=== PATIENT | female | born 1995 | race Caucasian/White ===

== ENCOUNTER 2016-06-26 14:06 | Emergency (ER) | payer OTHER ==
[~2016-06-26] VITALS: Ht 165.1 cm; Wt 70.0 kg
[2016-06-26 14:26] VITALS: BP 130/85; PULSE 80; RESP 16; TEMP 98.5; O2SAT 97
[2016-06-26] MEDS ORDERED: LEXA20TA PO (14:50)
[2016-06-26] MEDS ORDERED: XANA1TAB2 PO (14:50)
[2016-06-26 14:54] LABS: BLOOD, URINE SMALL (NEG); GLUCOSE,URINE NEG (NEG); KETONE, URINE NEG (NEG); NITRITE,URINE NEG (NEG)
--- NOTE | 2016-06-26 14:55 | PD ---
HPI Chief Complaint: Complaint Time Seen by Provider: 14:44 Travel History International Travel<30 days: No Contact w/Intl Traveler<30days: No Traveled to known affect area: No History of Present Illness HPI The patient is a 20-year-old female who presents emergency department for 2 day history of dysuria, frequency, urgency, and suprapubic discomfort. Patient complains of pressure and discomfort over the suprapubic region that radiating to the right lower quadrant into the right shoulder. She also complains of dysuria, frequency, and urgency with one episode of blood on the toilet paper. She denies any vaginal bleeding or discharge. The patient's last missed a cycle was November 08, 2016, she is sexually active, not currently on control. She does have a history of UTI with previous/similar symptoms. She denies any upper abdominal pain, does note mild nausea with one episode of vomiting. She denies any associated fever, chills, or sweats. PFSH Past Medical History Anxiety: Yes GERD: Yes Tetanus Vaccination: > 5 Years Influenza Vaccination: No ?: Unknown LMP: 06/10/15 Past Surgical History Surgical History: No Previous Surgery Social History Alcohol Use: No Tobacco Use: No Substance Use: No Allergies-Medications (Allergen,Severity, Reaction): Coded Allergies: No Known Allergies (Unverified , 06/26/16) Reported Meds & Prescriptions Reported Meds & Active Scripts Active Pyridium (Phenazopyridine HCl) 200 Mg Tab 200 Mg PO Q8H PRN 2 Days Bactrim DS (Sulfamethoxazole-Trimethoprim) 800-160 Mg Tab 1 Tab PO BID Reported Xanax (Alprazolam) 1 Mg Tab 1 Mg PO Q8H PRN Lexapro (Escitalopram Oxalate) 20 Mg Tab 20 Mg PO DAILY Review of Systems Except as stated in HPI: all other systems reviewed are Neg General / Constitutional: No: Fever, Chills Gastrointestinal: Positive: Nausea, Vomiting Genitourinary: Positive: Urgency, Frequency, Dysuria, Pelvic Pain, No: Discharge, Vaginal Bleeding Musculoskeletal: No: Myalgias Skin: No Rash Physical Exam Narrative GENERAL: Awake, alert, pleasant 20-year-old female who appears her stated age and is in no acute respiratory distress. SKIN: Warm and dry. HEAD: Atraumatic. Normocephalic. EYES: Patient is wearing glasses. No injection or drainage. GASTROINTESTINAL: Abdomen soft, mild suprapubic tenderness. No rebound tender his, guarding, or rigidity. Back: No CVA tenderness. MUSCULOSKELETAL: No obvious deformities. No clubbing. No cyanosis. No edema. NEUROLOGICAL: Awake and alert. No obvious cranial nerve deficits. Motor grossly within normal limits. Normal speech. PSYCHIATRIC: Appropriate mood and affect; insight and judgment normal. Data Data Last Documented VS Vital Signs Date Time Temp Pulse Resp B/P Pulse Ox O2 Delivery O2 Flow Rate FiO2 06/26/16 17:05 84 20 113/66 98 Room Air 06/26/16 14:26 98.5 Orders Urinalysis - C+S If Indicated (06/26/16 14:29) Ed Urine Pregnancytest Poc (06/26/16 14:37) Ct Abd/Pel W/O Iv Contrast (06/26/16 ) Us Pelvis Comp W Transvaginal (06/26/16 ) Beta Hcg (Quant/Titer) (06/26/16 17:12) Labs Laboratory Tests Test 06/26/16 06/26/16 14:40 17:20 Urine Collection Type CLEAN CATCH Urine Color YELLOW Urine Turbidity CLEAR Urine pH 6.0 Urine Specific [place] 1.020 Urine Protein NEG mg/dL Urine Glucose (UA) NEG mg/dL Urine Ketones NEG mg/dL Urine Occult Blood SMALL Urine Nitrite NEG Urine Bilirubin NEG Urine Leukocyte Esterase NEG Urine RBC 0-3 /hpf Urine WBC 0-2 /hpf Urine Squamous Epithelial 0-5 /hpf Cells Microscopic Urinalysis Comment CULT NOT INDICATED Human Chorionic Gonadotropin, LESS THAN 1 Quant MIU/ML MDM Medical Decision Making Medical Screen Exam Complete: Yes Emergency Medical Condition: Yes Medical Record Reviewed: Yes Interpretation(s) Laboratory Tests Test 06/26/16 14:40 Urine Collection Type CLEAN CATCH Urine Color YELLOW Urine Turbidity CLEAR Urine pH 6.0 Urine Specific [place] 1.020 Urine Protein NEG mg/dL Urine Glucose (UA) NEG mg/dL Urine Ketones NEG mg/dL Urine Occult Blood SMALL Urine Nitrite NEG Urine Bilirubin NEG Urine Leukocyte Esterase NEG Urine RBC 0-3 /hpf Urine WBC 0-2 /hpf Urine Squamous Epithelial 0-5 /hpf Cells Microscopic Urinalysis Comment CULT NOT INDICATED CT of the abdomen and pelvis reveals 2 tiny nonobstructing stones in the right kidney without evidence of hydronephrosis. Normal dimension right ureter. There is a greater than 5 cm masslike abnormality the right adnexal region which appears to be ovarian in origin, possibly a tumor. No calcific elements seen. There are both low density and intermediate density components to this and this lesion cannot be further evaluated by noncontrast study. Differential Diagnosis Differential diagnosis includes UTI, cystitis, nephrolithiasis, pyelonephritis, vaginitis, cervicitis, PID, atypical appendicitis, . Narrative Course Bedside UA test was obtained, was negative. UA was sent to lab. UA reveals blood, no evidence of infection. Therefore, CT of the abdomen and pelvis was ordered to evaluate for nephrolithiasis. CT reveals no evidence of hydronephrosis, there are 2 tiny nonobstructing stones in the right kidney, however, right ureter is within normal dimensions. However, there was greater than 5 cm masslike abnormality in the right adnexal region which appears to be ovarian in origin, possibly tumor. Therefore, ultrasound was ordered. The patient was signed out to the oncoming physician at 4 PM with ultrasound results pending. Patient may benefit from treatment of possible hemorrhagic cystitis with her current symptoms, therefore, I prescribed Bactrim and Pyridium. Diagnosis Primary Impression: Hemorrhagic cystitis Additional Impression: Ovarian mass, right Patient Instructions: General Instructions Med/Other Pt SpecificInfo: Prescription(s) given Scripts Phenazopyridine (Pyridium)200 Mg Xhg650 Mg PO Q8H PRN (DYSURIA) 2 Days Ref 0 Prov:Lambert Pink MD 06/26/16 Sulfamethoxazole-Trimethoprim (Bactrim DS)800-160 Mg Tab1 Tab PO BID #14 TAB Ref 0 Prov:Lambert Pink MD 06/26/16 Disposition: 01 DISCHARGE HOME Condition: Stable Lambert Pink MD Jun 26, 2016 14:55
[2016-06-26 14:58] LABS: METHOD OF COLLECTION CLEAN CATCH; URINE COLOR YELLOW (YELLW/STRAW)
[2016-06-26 14:59] LABS: RBC, URINE 0-3 /hpf (0-3); WBC, URINE 0-2 /hpf (0-5)
[2016-06-26 15:00] LABS: COMMENT (UR) CULT NOT INDICATED; CULTURE IF INDICATED CULT NOT INDICATED; SQUAMOUS EPITHELIAL CELL URINE 0-5 /hpf (0-5)
[2016-06-26] MEDS ORDERED: BACT800T5 PO (15:56)
[2016-06-26] MEDS ORDERED: PYRI200T4 PO (15:56)
--- NOTE | 2016-06-26 15:59 | RADHPO ---
EXAM DATE/TIME: 06/26/2016 15:19 [facility] COMPARISON: No previous studies available for comparison. INDICATIONS : Right flank pain and hematuria today. ORAL CONTRAST: No oral contrast ingested. RADIATION DOSE: 13.80 CTDIvol (mGy) MEDICAL HISTORY : Gastroesophageal reflux disease. SURGICAL HISTORY : None. ENCOUNTER: Initial ACUITY: 1 day PAIN SCALE: 8/10 LOCATION: Right flank TECHNIQUE: Volumetric scanning of the abdomen and pelvis was performed. Using automated exposure control and ad justment of the mA and/or kV according to patient size, radiation dose was kept as low as reasonably achievable to obtain optimal diagnostic quality images. FINDINGS: LOWER LUNGS: The visualized lower lungs are clear. LIVER: The visualized portion of the liver is unremarkable for noncontrast technique (renal colic scanning p rotocol was used). There is no dilation of the biliary tree. No calcified gallstones. SPLEEN: Normal size without lesion. PANCREAS: Within normal limits. KIDNEYS: There are two jovanny 1 mm nonobstructing stones in the right kidney. No stones seen in the left kidney . No evidence of hydronephrosis on either side. No calcifications along the course of either ureter . ADRENAL GLANDS: Within normal limits. VASCULAR: There is no aortic aneurysm. BOWEL/MESENTERY: The stomach, small bowel, and colon demonstrate no acute abnormality. The appendix is identified in the lateral pericecal location and measures 6 mm, within normal limits. There is no free intraperito sallie air or fluid. ABDOMINAL WALL: Within normal limits. RETROPERITONEUM: There is no lymphadenopathy. BLADDER: No wall thickening or mass. REPRODUCTIVE: There is a heterogeneous density mass in the right adnexal region which measures 5.1 x 3.8 cm. There is a central area of intermediate density and a progress for a rim of low density; margins are fairl y smooth. No definite evidence of free fluid. The left adnexa is grossly unremarkable. Uterus is n ormal in size. INGUINAL: There is no lymphadenopathy or hernia. MUSCULOSKELETAL: Within normal limits for patient age. CONCLUSION: 1. 2 tiny nonobstructing stones in the right kidney without evidence of hydronephrosis. Normal dimen rogerio right ureter. 2. There is a greater than 5 cm masslike abnormality in the right adnexal region which appears to be ovarian in origin, possibly a tumor. No calcific elements seen. There are both low density and inte rmediate density components to this and this lesion cannot be further evaluated by noncontrast study. Cem Walker MD on June 26, 2016 at 15:46 Board Certified Radiologist. This report was verified electronically.
[2016-06-26 17:05] VITALS: BP 113/66; PULSE 84; RESP 20; O2SAT 98
--- NOTE | 2016-06-26 17:06 | RADHPO ---
EXAM DATE/TIME: 06/26/2016 16:16 [facility] COMPARISON: CT ABDOMEN & PELVIS W/O CONTRAST, June 26, 2016, 15:19. INDICATIONS : Right pelvic pain. Mass seen on CT. MEDICAL HISTORY : Gastroesophageal reflux disease. Anxiety. SURGICAL HISTORY : None. ENCOUNTER: Initial ACUITY: 1 day PAIN SCORE: 8/10 LOCATION: Bilateral pelvis MEASUREMENTS: UTERUS: 8.3 x 4.3 x 3.6 cm ENDOMETRIAL STRIPE: 5 mm RIGHT OVARY: 4.5 x 3.4 x 4.1 cm LEFT OVARY: 2.1 x 1.6 x 1.1 cm FINDINGS: UTERUS: The myometrium has homogeneous echotexture without mass. RIGHT OVARY: CT scan had demonstrated a mixed density lesion in the right adnexal region. On ultrasound, there is a heterogeneous echotexture solid lesion which measures 4.5 x 3.4 x 4.1 cm. It is uncertain whether this represents the ovary or displaces and obscures the ovary. There is internal flow seen on color Doppler with both arterial and venous pattern discernible. There is a mild amount of free fluid abo ut the right adnexa. Centrally within the solid region, there is a small area of more inhomogeneous echotexture which measures 2.5 cm. LEFT OVARY: Ovary contains no mass or significant cystic lesion. MISCELLANEOUS: No free fluid. CONCLUSION: Abnormal appearance to the right adnexa with greater than 4 cm heterogeneous echotexture vascular mas s. This cannot be further characterized. Recommend gynecologic consultation for further workup. Al so recommend performing quantitative beta-hCG if not already done. Cem Walker MD on June 26, 2016 at 17:01 Board Certified Radiologist. This report was verified electronically.
--- NOTE | 2016-06-26 17:21 | PD ---
Physical Exam Date Seen by Provider: Jun 26, 2016 Narrative Care of this patient was assumed from Dr. Pink at 4 PM. She was awaiting an ultrasound for further evaluation of an ovarian mass. Data Data Last Documented VS Vital Signs Date Time Temp Pulse Resp B/P Pulse Ox O2 Delivery O2 Flow Rate FiO2 06/26/16 17:05 84 20 113/66 98 Room Air 06/26/16 14:26 98.5 Orders Urinalysis - C+S If Indicated (06/26/16 14:29) Ed Urine Pregnancytest Poc (06/26/16 14:37) Ct Abd/Pel W/O Iv Contrast (06/26/16 ) Us Pelvis Comp W Transvaginal (06/26/16 ) Beta Hcg (Quant/Titer) (06/26/16 17:12) Labs Laboratory Tests Test 06/26/16 06/26/16 14:40 17:20 Urine Collection Type CLEAN CATCH Urine Color YELLOW Urine Turbidity CLEAR Urine pH 6.0 Urine Specific [place] 1.020 Urine Protein NEG mg/dL Urine Glucose (UA) NEG mg/dL Urine Ketones NEG mg/dL Urine Occult Blood SMALL Urine Nitrite NEG Urine Bilirubin NEG Urine Leukocyte Esterase NEG Urine RBC 0-3 /hpf Urine WBC 0-2 /hpf Urine Squamous Epithelial 0-5 /hpf Cells Microscopic Urinalysis Comment CULT NOT INDICATED Human Chorionic Gonadotropin, LESS THAN 1 Quant MIU/ML MDM Supervised Visit with SH[facility]ELLE: No Narrative Course Ultrasound shows an abnormal. Appearance to the right adnexa with a greater than 4 cm heterogenous echotexture vascular mass. Radiologist recommended a quantitative hCG and consultation with gynecology. I have ordered a quantitative hCG. The patient will be given a referral to a stream control officer as an outpatient. The patient states that she is really not having significant pain and she thinks that she will be okay at home with [id number] Motrin. Her quantitative hCG is negative. Diagnosis Primary Impression: Ovarian mass, right Referrals: Yany Huerta MD 3 days Patient Instructions: General Instructions, Ovarian Cyst (DC) Scripts Phenazopyridine (Pyridium)200 Mg Pam024 Mg PO Q8H PRN (DYSURIA) 2 Days Ref 0 Prov:Lambert Pink MD 06/26/16 Sulfamethoxazole-Trimethoprim (Bactrim DS)800-160 Mg Tab1 Tab PO BID #14 TAB Ref 0 Prov:Lambert Pink MD 06/26/16 Disposition: 01 DISCHARGE HOME Condition: Stable Namita Baig MD Jun 26, 2016 17:21
[2016-06-26 17:47] LABS: BETA HCG QUANT LESS THAN 1 MIU/ML (0-5)
[2016-07-16] MEDS ORDERED: VITA500T PO (13:53)
[2016-07-19] MEDS ORDERED: VITA10007 PO (08:36)
[2016-07-19] MEDS ORDERED: IBUP200C PO (08:36)
== END 2016-06-26 18:11 | disposition home or self-care (01) ==
LOC: PHEFT 14:06 → PHED 18:11
DX: N30.91 Cystitis, unspecified with hematuria (principal); N83.9 Noninflammatory disorder of ovary, fallopian tube and broad ligament, unspecified; R35.0 Frequency of micturition
CPT/HCPCS: 74176; 76830; 76856; 81001; 84702; 84703

== ENCOUNTER → 2016-07-19 | Day surgery (SDC) | payer OTHER ==
[~2016-07-19] VITALS: Ht 165.1 cm; Wt 71.1 kg
[~2016-07-19] MED LIST: *morphine SULFATE 8 MG/ML PERIprocedure ONLY ONE; BUPIVACAINE HCL PF 0.5% 30 ML VIAL ONE; BUSP1TAB PO; BUSP5TAB PO; CITA20TA4 PO; DEXAMETHASONE SOD PHOS 4 MG/ML VIAL ONE; DO NOT ADM ANY ANTICOAGULANT DRUGS XX PRN; FAMOTIDINE 20 MG/2 ML VIAL ONE; IBUP200C PO; INSULIN HUMAN REGULAR 1,000 UNITS/10 ML VIAL SQ PRN; KETOROLAC TROMETHAMINE 30 MG/ML (IVP) VIAL IV PUSH ONE; KETOROLAC TROMETHAMINE 60 MG/2 ML (IM) VIAL IM ONE; LACTATED RINGER'S 1000 ML IV SCH; LEXA20TA PO; MACR100C2 PO; METOPROLOL TARTRATE 25 MG TAB PO PRN; MIDAZOLAM HCL 2 MG/2 ML VIAL ONE; NEOSTIGMINE 3 MG/3 ML SYR IV ONE; ONDANSETRON HCL 4 MG/2 ML VIAL IV PUSH ONE; ONDANSETRON HCL 4 MG/2 ML VIAL IV PUSH PRN; PROPOFOL 200 MG/20 ML AMP IV ONE; SODIUM CHLORID 0.9% 500 ML IV SCH; VITA10007 PO; VITA500T PO; XANA1TAB2 PO; ZOFR4TAB3 SL; fentaNYL CITRATE 250 MCG/5 ML AMP ONE; oxyCODONE/ACETAMINOPHEN 5 MG/325 MG TAB PO PRN
[2016-07-19 08:41] VITALS: BP 116/70; PULSE 78; RESP 16; TEMP 98.9; O2SAT 97
[2016-07-19 09:47] LABS: AUTOMATED NEUTROPHIL # 3.3 TH/MM3 (1.8-7.7); BASOPHIL % 0.5 % (0.0-2.0); EOSINOPHIL # 0.2 TH/MM3 (0-0.4); EOSINOPHIL % 3.2 % (0.0-4.0); HEMATOCRIT 38.4 % (35.0-46.0); HEMO FLAGS DIFF FINAL; LYMPH % 37.2 % (9.0-44.0); LYMPHOCYTE # 2.5 TH/MM3 (1.0-4.8); MEAN CELL VOLUME 89.9 FL (80.0-100.0); MEAN CORPUSCULAR HGB CONC 34.5 % (32.0-36.0); MONO % 9.1 % (0.0-8.0); PLATELET COUNT 175 TH/MM3 (150-450); RED BLOOD COUNT 4.27 MIL/MM3 (4.00-5.30); RED CELL DISTRIBUTION WIDTH 12.8 % (11.6-17.2); WHITE BLOOD COUNT 6.6 TH/MM3 (4.0-11.0)
[2016-07-19 10:15] LABS: BETA HCG QUANT LESS THAN 1 MIU/ML (0-5)
[2016-07-19 13:09] VITALS: BP 125/69; PULSE 92; RESP 16; TEMP 98.4; O2SAT 98
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
== END | disposition home or self-care (01) ==
LOC: HSDC 07:58
PROVIDERS: ATTEND Obstetrics & Gynecology
DX: R19.00 Intra-abdominal and pelvic swelling, mass and lump, unspecified site (principal)
CPT/HCPCS: 00840; 58662; 84702; 85025; 88305; J1100; J1885; J2250; J2270; J2405; J2710; J3010; J7120

== ENCOUNTER 2016-08-03 18:12 | Emergency (ER) | payer OTHER ==
[~2016-08-03] VITALS: Ht 165.1 cm; Wt 72.7 kg
[~2016-08-03 18:12] MED LIST changes: -*morphine SULFATE 8 MG/ML PERIprocedure ONLY ONE; -BUPIVACAINE HCL PF 0.5% 30 ML VIAL ONE; -BUSP1TAB PO; -BUSP5TAB PO; -CITA20TA4 PO; -DEXAMETHASONE SOD PHOS 4 MG/ML VIAL ONE; -DO NOT ADM ANY ANTICOAGULANT DRUGS XX PRN; -FAMOTIDINE 20 MG/2 ML VIAL ONE; -INSULIN HUMAN REGULAR 1,000 UNITS/10 ML VIAL SQ PRN; -KETOROLAC TROMETHAMINE 30 MG/ML (IVP) VIAL IV PUSH ONE; -KETOROLAC TROMETHAMINE 60 MG/2 ML (IM) VIAL IM ONE; -LACTATED RINGER'S 1000 ML IV SCH; -MACR100C2 PO; -METOPROLOL TARTRATE 25 MG TAB PO PRN; -MIDAZOLAM HCL 2 MG/2 ML VIAL ONE; -NEOSTIGMINE 3 MG/3 ML SYR IV ONE; -ONDANSETRON HCL 4 MG/2 ML VIAL IV PUSH ONE; -ONDANSETRON HCL 4 MG/2 ML VIAL IV PUSH PRN; -PROPOFOL 200 MG/20 ML AMP IV ONE; -SODIUM CHLORID 0.9% 500 ML IV SCH; -VITA500T PO; -ZOFR4TAB3 SL; -fentaNYL CITRATE 250 MCG/5 ML AMP ONE; -oxyCODONE/ACETAMINOPHEN 5 MG/325 MG TAB PO PRN
[2016-08-03 18:25] VITALS: BP 113/70; PULSE 63; RESP 18; TEMP 98.7; O2SAT 97
--- NOTE | 2016-08-03 18:59 | PD ---
HPI Chief Complaint: Edema Time Seen by Provider: 18:55 Travel History International Travel<30 days: No Contact w/Intl Traveler<30days: No Traveled to known affect area: No History of Present Illness HPI 20-year-old female presents the emergency Department with 1 month history of left anterior upper neck pain and swelling, difficulty swallowing. Patient has noted this not changing over the past month. Patient was put on Augmentin by a local urgent care 1 week ago without any change in her symptoms. Denies ear pain, dental symptoms, sore throat, fever, chills, change in weight , loss of hair, or cough. Patient denies sinus tenderness or headache. Denies heartburn or other abdominal symptoms. Patient states the pain is not worse with eating. Patient has been taking Naprosyn without improvement. Patient has no local primary care physician as she's just moving here from [place]. Patient has no known drug allergies. PFSH Past Medical History Anxiety: Yes Cancer: No Cardiovascular Problems: No Diabetes: No Endocrine: No Gastrointestinal Disorders: Yes (ULCER) GERD: Yes Genitourinary: Yes (KIDNEY STONES) Hepatitis: No Hiatal Hernia: No Hypertension: No Immune Disorder: No Musculoskeletal: No Neurologic: No Psychiatric: No (ANXIETY AND DEPRESSION) Reproductive: Yes (RT OVARIAN CYST) Respiratory: No Thyroid Disease: No Tetanus Vaccination: > 5 Years Influenza Vaccination: No ?: Unknown LMP: 07/24/16 Past Surgical History AICD: No Joint Replacement: No Pacemaker: No Other Surgery: Yes (R ovarian tumor removal) Social History Alcohol Use: No Tobacco Use: No Substance Use: No Allergies-Medications (Allergen,Severity, Reaction): Coded Allergies: No Known Allergies (Unverified , 08/03/16) Reported Meds & Prescriptions Reported Meds & Active Scripts Active Reported Ibuprofen 200 Mg Cap 400 Mg PO Q6H PRN Vitamin C (Ascorbic Acid) 1,000 Mg Tab 1,000 Mg PO DAILY Xanax (Alprazolam) 1 Mg Tab 1 Mg PO Q8H PRN Lexapro (Escitalopram Oxalate) 20 Mg Tab 20 Mg PO DAILY Review of Systems Except as stated in HPI: all other systems reviewed are Neg General / Constitutional: No: Fever, Chills Eyes: No: Visual changes HENT: Positive: Sore Throat, Neck Pain (see history present illness.), No: Headaches, Vertigo, Lightheadedness, Rhinitis (with swallowing.), Rhinorrhea, Congestion, Nosebleed, Neck Stiffness, Masses, Gingival Bleeding, Dental Difficulties, Ear Discharge, Earache Cardiovascular: No: Chest Pain or Discomfort Respiratory: No: Cough, Shortness of Breath Gastrointestinal: No: Nausea, Vomiting, Diarrhea, Abdominal Pain Genitourinary: No: Dysuria Musculoskeletal: No: Pain Skin: No Rash Neurologic: No: Weakness Psychiatric: No: Depression Endocrine: No: Polydipsia Hematologic/Lymphatic: No: Easy Bruising Physical Exam Narrative GENERAL: Patient appears no acute distress. SKIN: Warm and dry. Normal color. Normal turgor. HEAD: Atraumatic. Normocephalic. Nontender. EYES: Pupils equal and round. No scleral icterus. No injection or drainage. ENT: No nasal bleeding or discharge. Mucous membranes pink and moist. Pharynx appears unremarkable. TMs are clear bilaterally. Uvula is midline. No significant tonsillitis or exudate. NECK: Trachea midline. No JVD. Supple and nontender. Patient has slightly enlarged lymph node versus salivary gland under the left jaw ramus. No palpable thyroid. CARDIOVASCULAR: Regular rate and rhythm. RESPIRATORY: No accessory muscle use. Clear to auscultation. Breath sounds equal bilaterally. GASTROINTESTINAL: Abdomen soft, non-tender, nondistended. Hepatic and splenic margins not palpable. MUSCULOSKELETAL: Extremities without clubbing, cyanosis, or edema. No obvious deformities. NEUROLOGICAL: Awake and alert. No obvious cranial nerve deficits. Motor grossly within normal limits. Five out of 5 muscle strength in the arms and legs. Normal speech. PSYCHIATRIC: Appropriate mood and affect; insight and judgment normal. Data Data Last Documented VS Vital Signs Date Time Temp Pulse Resp B/P Pulse Ox O2 Delivery O2 Flow Rate FiO2 08/03/16 18:42 Room Air 08/03/16 18:25 98.7 63 18 113/70 97 Orders Complete Blood Count With Diff (08/03/16 18:53) Comprehensive Metabolic Panel (08/03/16 18:53) Iv Access Insert/Monitor (08/03/16 18:53) Monoscreen (08/03/16 18:53) Ed Urine Pregnancytest Poc (08/03/16 19:05) Labs Laboratory Tests Test 08/03/16 19:10 White Blood Count 8.0 TH/MM3 Red Blood Count 4.38 MIL/MM3 Hemoglobin 13.5 GM/DL Hematocrit 39.7 % Mean Corpuscular Volume 90.6 FL Mean Corpuscular Hemoglobin 30.9 PG Mean Corpuscular Hemoglobin 34.0 % Concent Red Cell Distribution Width 12.3 % Platelet Count 200 TH/MM3 Mean Platelet Volume 9.5 FL Neutrophils (%) (Auto) 54.8 % Lymphocytes (%) (Auto) 33.3 % Monocytes (%) (Auto) 7.3 % Eosinophils (%) (Auto) 3.7 % Basophils (%) (Auto) 0.9 % Neutrophils # (Auto) 4.3 TH/MM3 Lymphocytes # (Auto) 2.7 TH/MM3 Monocytes # (Auto) 0.6 TH/MM3 Eosinophils # (Auto) 0.3 TH/MM3 Basophils # (Auto) 0.1 TH/MM3 CBC Comment DIFF FINAL Differential Comment Sodium Level 142 MEQ/L Potassium Level 4.0 MEQ/L Chloride Level 105 MEQ/L Carbon Dioxide Level 28.5 MEQ/L Anion Gap 9 MEQ/L Blood Urea Nitrogen 8 MG/DL Creatinine 0.78 MG/DL Estimat Glomerular Filtration 92 ML/MIN Rate Random Glucose 105 MG/DL Calcium Level 8.9 MG/DL Total Bilirubin 0.2 MG/DL Aspartate Amino Transf 11 U/L (AST/SGOT) Alanine Aminotransferase 17 U/L (ALT/SGPT) Alkaline Phosphatase 66 U/L Total Protein 7.1 GM/DL Albumin 3.9 GM/DL [facility] Medical Decision Making Medical Screen Exam Complete: Yes Emergency Medical Condition: Yes Differential Diagnosis Possible mumps. Salpingitis. Lymphadenitis. Narrative Course Patient is felt to be medically stable at time of exam. Labs ordered including CBC, CMP, and [place]. I discussed with the patient that based on my history and physical as CT scan is not felt to be warranted at this time, and the large amount radiation from the test would not be worth it. Labs show normal CBC, normal CMP, and [place] is pending. I recommend the patient continue the Augmentin until it's gone. I reassured her that I feel that she has a benign lymphangitis. Recommend that she takes ibuprofen and Tylenol and follow up with symptoms continue or worsen over the next several weeks. Recommend patient follow-up with a local primary care physician or ear nose and throat doctor as needed. Diagnosis Primary Impression: Lymphangitis Referrals: Bharathi Mathews MD as needed Primary Care Physician Patient Instructions: General Instructions Additional Instructions: I discussed with the patient that based on my history and physical as CT scan is not felt to be warranted at this time, and the large amount radiation from the test would not be worth it. Labs show normal CBC, normal CMP, and [place] is pending. I recommend the patient continue the Augmentin until it's gone. I reassured her that I feel that she has a benign lymphangitis. Recommend that she takes ibuprofen and Tylenol and follow up with symptoms continue or worsen over the next several weeks. Recommend patient follow-up with a local primary care physician or ear nose and throat doctor as needed. Med/Other Pt SpecificInfo: No Meds Exist/No RX given Disposition: 01 DISCHARGE HOME Condition: Stable Shahzad Doty Aug 03, 2016 18:58 Shahzad Doty Aug 03, 2016 18:58
[2016-08-03 19:25] LABS: AUTOMATED NEUTROPHIL # 4.3 TH/MM3 (1.8-7.7); BASOPHIL # 0.1 TH/MM3 (0-0.2); BASOPHIL % 0.9 % (0.0-2.0); EOSINOPHIL # 0.3 TH/MM3 (0-0.4); EOSINOPHIL % 3.7 % (0.0-4.0); HEMATOCRIT 39.7 % (35.0-46.0); HEMO FLAGS DIFF FINAL; LYMPH % 33.3 % (9.0-44.0); LYMPHOCYTE # 2.7 TH/MM3 (1.0-4.8); MEAN CELL VOLUME 90.6 FL (80.0-100.0); MEAN CORPUSCULAR HEMOGLOBIN 30.9 PG (27.0-34.0); MONO % 7.3 % (0.0-8.0); NEUT % 54.8 % (16.0-70.0); PLATELET COUNT 200 TH/MM3 (150-450); RED BLOOD COUNT 4.38 MIL/MM3 (4.00-5.30); RED CELL DISTRIBUTION WIDTH 12.3 % (11.6-17.2)
[2016-08-03 19:32] LABS: CHLORIDE 105 MEQ/L (98-107); SODIUM (NA) 142 MEQ/L (136-145)
[2016-08-03 19:36] LABS: ANION GAP 9 MEQ/L (5-15); BICARBONATE 28.5 MEQ/L (21.0-32.0); BLOOD UREA NITROGEN 8 MG/DL (7-18)
[2016-08-03 19:39] LABS: ALT (GPT) 17 U/L (10-53); AST (GOT) 11 U/L (15-37); GLOMERULAR FILTRATION RATE 92 ML/MIN (>89)
[2016-08-03 19:40] LABS: TOTAL BILIRUBIN ADULT 0.2 MG/DL (0.2-1.0)
[2016-08-03 19:42] LABS: ALKALINE PHOSPHATASE 66 U/L (45-117)
== END 2016-08-03 20:18 | disposition home or self-care (01) ==
LOC: PHEFT 18:12
DX: I89.1 Lymphangitis (principal)
CPT/HCPCS: 80053; 84703; 85025; 86308; 99284

== ENCOUNTER 2016-08-08 22:35 | Emergency (ER) | payer OTHER ==
[~2016-08-08] VITALS: Ht 165.1 cm; Wt 72.0 kg
[2016-08-08 23:00] VITALS: BP 127/68; PULSE 105; RESP 18; TEMP 98.3; O2SAT 96
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
[2016-08-09 00:05] VITALS: BP 134/61; PULSE 102; RESP 18; O2SAT 97
[2016-08-09] MEDS ORDERED: ACETAMINOPHEN 325 MG TAB PO ONE (02:00)
[2016-08-09] MEDS ORDERED: LEVONORGESTREL (EMERGENCY OC) 1.5 MG TAB ONE (02:43)
[2016-08-09] MEDS ORDERED: ONDANSETRON ODT 4 MG TAB ONE ×2 (02:44→04:42)
[2016-08-09] MEDS ORDERED: cefTRIAXone 250 MG VIAL ONE (02:44)
[2016-08-09] MEDS ORDERED: LIDOCAINE HCL 1% PF 2 ML VIAL ONE (02:44)
[2016-08-09] MEDS ORDERED: AZITHROMYCIN PWD FOR SUSP 1 GM PACKET PO ONE (03:30)
[2016-08-09 05:18] VITALS: BP 113/66; TEMP 98.2
== END 2016-08-09 05:18 | disposition left against medical advice (07) ==
LOC: PHED 22:35
DX: F41.9 Anxiety disorder, unspecified (principal); T76.21XA Adult sexual abuse, suspected, initial encounter
CPT/HCPCS: 99281; J0696

== ENCOUNTER 2016-11-13 15:32 | Emergency (ER) | payer OTHER ==
[~2016-11-13] VITALS: Ht 165.1 cm; Wt 73.0 kg
[2016-11-13 15:37] VITALS: BP 123/79; PULSE 95; RESP 16; TEMP 98.5; O2SAT 96
[2016-11-13 15:56] LABS: BLOOD, URINE TRACE (NEG); GLUCOSE,URINE NEG (NEG); KETONE, URINE TRACE mg/dL (NEG); NITRITE,URINE NEG (NEG)
--- NOTE | 2016-11-13 15:57 | PD ---
HPI Chief Complaint: Anxiety Time Seen by Provider: 15:43 Travel History International Travel<30 days: No Contact w/Intl Traveler<30days: No Traveled to known affect area: No History of Present Illness HPI PT STATES [facility] IS HER PCP, AND THAT SHE USED TO BE ON XANAX (OVER 3MONTHS AGO WAS THE LAST DOSE TAKEN) TODAY FEELS PALPITATIONS AND FOUND OUT THAT SHE IS (LMP OCTOBER 16) AND WILL ESTABLISH WITH A NEW OBGYN [facility] Past Medical History Anxiety: Yes Depression: Yes Cancer: No Cardiovascular Problems: No Diabetes: No Endocrine: No Gastrointestinal Disorders: Yes (ULCER) GERD: Yes Genitourinary: Yes (KIDNEY STONES) Hepatitis: No Hiatal Hernia: No Hypertension: No Immune Disorder: No Kidney Stones: Yes Musculoskeletal: No Neurologic: No Reproductive: Yes (RT OVARIAN CYST) Respiratory: No Thyroid Disease: No Influenza Vaccination: No ?: LMP: 10/11/16 : 0 Past Surgical History AICD: No Joint Replacement: No Pacemaker: No Other Surgery: Yes (R ovarian tumor removal) Social History Alcohol Use: Yes (Occasionally) Tobacco Use: No Substance Use: Yes ("Marijuana") Allergies-Medications (Allergen,Severity, Reaction): Coded Allergies: Adhesives (Verified Allergy, Intermediate, Hives, 11/13/16) Reported Meds & Prescriptions Reported Meds & Active Scripts Active Reported Lexapro (Escitalopram Oxalate) 20 Mg Tab 20 Mg PO HS Review of Systems Except as stated in HPI: all other systems reviewed are Neg Psychiatric: Positive: Anxiety Physical Exam Narrative GENERAL: SKIN: Warm and dry. HEAD: Atraumatic. Normocephalic. EYES: Pupils equal and round. No scleral icterus. No injection or drainage. ENT: No nasal bleeding or discharge. Mucous membranes pink and moist. NECK: Trachea midline. No JVD. CARDIOVASCULAR: Regular rate and rhythm. RESPIRATORY: No accessory muscle use. Clear to auscultation. Breath sounds equal bilaterally. GASTROINTESTINAL: Abdomen soft, non-tender, nondistended. Hepatic and splenic margins not palpable. MUSCULOSKELETAL: Extremities without clubbing, cyanosis, or edema. No obvious deformities. NEUROLOGICAL: Awake and alert. No obvious cranial nerve deficits. Motor grossly within normal limits. Five out of 5 muscle strength in the arms and legs. Normal speech. PSYCHIATRIC: Appropriate mood and affect; insight and judgment normal. Data Data Last Documented VS Vital Signs Date Time Temp Pulse Resp B/P Pulse Ox O2 Delivery O2 Flow Rate FiO2 11/13/16 15:37 98.5 95 16 123/79 96 Orders Urinalysis - C+S If Indicated (11/13/16 15:43) Ed Urine Pregnancytest Poc (11/13/16 15:43) Drug Screen, Random Urine (11/13/16 15:43) Electrocardiogram (11/13/16 15:49) Complete Blood Count With Diff (11/13/16 15:49) Comprehensive Metabolic Panel (11/13/16 15:49) Thyroid Stimulating Hormone (11/13/16 15:49) Iv Access Insert/Monitor (11/13/16 15:49) Ecg Monitoring (11/13/16 15:49) Oximetry (11/13/16 15:49) Urine Culture (11/13/16 15:50) Labs Laboratory Tests Test 11/13/16 11/13/16 15:50 16:00 Urine Collection Type CATH Urine Color YELLOW Urine Turbidity CLEAR Urine pH 7.0 Urine Specific [place] 1.023 Urine Protein 30 mg/dL Urine Glucose (UA) NEG mg/dL Urine Ketones TRACE mg/dL Urine Occult Blood TRACE Urine Nitrite NEG Urine Bilirubin NEG Urine Leukocyte Esterase TRACE Urine RBC 0-3 /hpf Urine WBC 9-14 /hpf Urine Squamous Epithelial > 8 /hpf Cells Urine Bacteria FEW /hpf Microscopic Urinalysis Comment CULTURE INDICATED Urine Collection Time 15:50 Urine Opiates Screen NEG Urine Barbiturates Screen NEG Urine Amphetamines Screen NEG Urine Benzodiazepines Screen NEG Urine Cocaine Screen NEG Urine Cannabinoids Screen POS White Blood Count 10.8 TH/MM3 Red Blood Count 4.40 MIL/MM3 Hemoglobin 13.6 GM/DL Hematocrit 39.2 % Mean Corpuscular Volume 89.2 FL Mean Corpuscular Hemoglobin 30.9 PG Mean Corpuscular Hemoglobin 34.6 % Concent Red Cell Distribution Width 12.2 % Platelet Count 214 TH/MM3 Mean Platelet Volume 9.4 FL Neutrophils (%) (Auto) 69.9 % Lymphocytes (%) (Auto) 22.5 % Monocytes (%) (Auto) 6.2 % Eosinophils (%) (Auto) 0.7 % Basophils (%) (Auto) 0.7 % Neutrophils # (Auto) 7.4 TH/MM3 Lymphocytes # (Auto) 2.4 TH/MM3 Monocytes # (Auto) 0.7 TH/MM3 Eosinophils # (Auto) 0.1 TH/MM3 Basophils # (Auto) 0.1 TH/MM3 CBC Comment DIFF FINAL Differential Comment Sodium Level 141 MEQ/L Potassium Level 3.5 MEQ/L Chloride Level 109 MEQ/L Carbon Dioxide Level 23.1 MEQ/L Anion Gap 9 MEQ/L Blood Urea Nitrogen 8 MG/DL Creatinine 0.69 MG/DL Estimat Glomerular Filtration 105 ML/MIN Rate Random Glucose 122 MG/DL Calcium Level 8.7 MG/DL Total Bilirubin 0.4 MG/DL Aspartate Amino Transf 14 U/L (AST/SGOT) Alanine Aminotransferase 23 U/L (ALT/SGPT) Alkaline Phosphatase 68 U/L Total Protein 7.2 GM/DL Albumin 4.0 GM/DL Thyroid Stimulating Hormone 2.160 uIU/ML 3rd Gen [facility] Medical Decision Making Medical Screen Exam Complete: Yes Emergency Medical Condition: Yes Medical Record Reviewed: Yes Interpretation(s) NSR 89, LAE, NORMAL INTERVALS, NO STEMI PATTERN Differential Diagnosis ANXIETY V HYPERTHYROID V ANEMIA V DEHYDRATION Narrative Course NO ANEMIA, NL TSH, NO E/O DEHYDRATION CLINICALLY OR LAB GUDINO. PATIENT FOUND TO HAVE UTI ON UA, WILL D/C WITH ABX AND ZOFRAN IF PT GETS NAUSEOUS, ADVISED PATIENT THAT BZD ARE NOT HIGHLY RECC DURING IT CAN AFFECT FETUS...SPECIALLY SINCE SHE HAS BEEN OFF XANAX FOR AT LEAST 3 MONTHS. Diagnosis Primary Impression: UTI (urinary tract infection) Qualified Code: N30.00 - Acute cystitis without hematuria Additional Impression: Qualified Code: Z3A.01 - Less than 8 weeks gestation of Patient Instructions: General Instructions, Urinary Tract Infection in (ED) Scripts Ondansetron Odt (Zofran Odt)4 Mg Tab4 Mg SL Q6HR PRN (Nausea/Vomiting) #12 TAB Ref 0 Prov:Rito Henriquez MD 11/13/16 Nitrofurantoin Monohydrate Macrocrystals (Macrobid)100 Mg [id number] Mg PO BID #14 CAP Ref 0 Prov:Rito Henriquez MD 11/13/16 Disposition: 01 DISCHARGE HOME Condition: Stable Rito Henriquez MD Nov 13, 2016 15:57
[2016-11-13 16:01] LABS: BACTERIA, URINE FEW /hpf; METHOD OF COLLECTION CATH; RBC, URINE 0-3 /hpf (0-3); SQUAMOUS EPITHELIAL CELL URINE > 8 /hpf (0-5); URINE COLOR YELLOW (YELLW/STRAW)
[2016-11-13 16:02] LABS: COMMENT (UR) CULTURE INDICATED; CULTURE IF INDICATED CULTURE INDICATED
[2016-11-13 16:14] LABS: AUTOMATED NEUTROPHIL # 7.4 TH/MM3 (1.8-7.7); BASOPHIL # 0.1 TH/MM3 (0-0.2); BASOPHIL % 0.7 % (0.0-2.0); EOSINOPHIL # 0.1 TH/MM3 (0-0.4); EOSINOPHIL % 0.7 % (0.0-4.0); HEMATOCRIT 39.2 % (35.0-46.0); HEMO FLAGS DIFF FINAL; LYMPH % 22.5 % (9.0-44.0); LYMPHOCYTE # 2.4 TH/MM3 (1.0-4.8); MEAN CELL VOLUME 89.2 FL (80.0-100.0); MEAN CORPUSCULAR HEMOGLOBIN 30.9 PG (27.0-34.0); MEAN CORPUSCULAR HGB CONC 34.6 % (32.0-36.0); MONO % 6.2 % (0.0-8.0); NEUT % 69.9 % (16.0-70.0); PLATELET COUNT 214 TH/MM3 (150-450); RED CELL DISTRIBUTION WIDTH 12.2 % (11.6-17.2); WHITE BLOOD COUNT 10.8 TH/MM3 (4.0-11.0)
[2016-11-13 16:19] LABS: BARBITURATES, URINE NEG (NEG)
[2016-11-13 16:20] LABS: AMPHETAMINE, URINE NEG (NEG)
[2016-11-13 16:23] LABS: COCAINE, URINE NEG (NEG)
[2016-11-13 16:24] LABS: CHLORIDE 109 MEQ/L (98-107); POTASSIUM 3.5 MEQ/L (3.5-5.1); SODIUM (NA) 141 MEQ/L (136-145)
[2016-11-13 16:27] LABS: ANION GAP 9 MEQ/L (5-15); BICARBONATE 23.1 MEQ/L (21.0-32.0)
[2016-11-13 16:28] LABS: BLOOD UREA NITROGEN 8 MG/DL (7-18)
[2016-11-13 16:30] LABS: ALT (GPT) 23 U/L (10-53)
[2016-11-13 16:31] LABS: AST (GOT) 14 U/L (15-37); GLOMERULAR FILTRATION RATE 105 ML/MIN (>89)
[2016-11-13 16:32] LABS: TOTAL BILIRUBIN ADULT 0.4 MG/DL (0.2-1.0)
[2016-11-13 16:33] LABS: ALKALINE PHOSPHATASE 68 U/L (45-117)
[2016-11-13] MEDS ORDERED: MACR100C2 PO (16:53)
[2016-11-13] MEDS ORDERED: ZOFR4TAB3 SL (16:53)
--- NOTE | 2016-11-14 12:27 | EKG ---
Date Performed: 11/13/2016 Time Performed: 16:00:20 PTAGE: 21 years EKG: Sinus rhythm POSSIBLE LEFT ATRIAL ENLARGEMENT BORDERLINE ECG NO PREVIOUS TRACING DOCTOR: Tanvir James Interpretating Date/Time 11/14/2016 12:23:47
== END 2016-11-13 17:19 | disposition home or self-care (01) ==
LOC: PHED 15:32
DX: O23.41 Unspecified infection of urinary tract in pregnancy, first trimester (principal); B96.20 Unspecified Escherichia coli [E. coli] as the cause of diseases classified elsewhere; Z3A.01 Less than 8 weeks gestation of pregnancy
CPT/HCPCS: 80053; 80307; 81001; 84443; 84703; 85025; 87077; 87086; 87186; 93005; 99284

== ENCOUNTER 2016-11-19 13:47 | Observation (INO) | payer OTHER ==
[2016-11-19 13:30] VITALS: BP 133/74; PULSE 102; RESP 24; TEMP 97; O2SAT 99
[~2016-11-19 13:47] MED LIST changes: -IBUP200C PO; +MACR100C2 PO; -VITA10007 PO; -XANA1TAB2 PO; +ZOFR4TAB3 SL
[2016-11-19] MEDS ORDERED: SODIUM CHLOR 0.9% 1000 ML INJ 1,000 ML IV SCH (13:48)
[2016-11-19] MEDS ORDERED: CITA20TA4 PO (14:02)
[2016-11-19] MEDS ORDERED: BUSP1TAB PO (14:03)
[2016-11-19] MEDS: ONDANSETRON HCL 4 MG/2 ML VIAL IV PUSH SCH ×2 (14:33→21:21)
[2016-11-19] MEDS ORDERED: hydrOXYzine HCL 50 MG/ML VIAL IM ONE (15:00)
[2016-11-19 15:36] LABS: AUTOMATED NEUTROPHIL # 11.8 TH/MM3 (1.8-7.7); BASOPHIL % 0.3 % (0.0-2.0); HEMATOCRIT 41.8 % (35.0-46.0); HEMO FLAGS DIFF FINAL; LYMPH % 9.9 % (9.0-44.0); LYMPHOCYTE # 1.4 TH/MM3 (1.0-4.8); MEAN CELL VOLUME 90.6 FL (80.0-100.0); MEAN CORPUSCULAR HEMOGLOBIN 30.7 PG (27.0-34.0); MEAN CORPUSCULAR HGB CONC 33.9 % (32.0-36.0); MONO % 5.4 % (0.0-8.0); NEUT % 84.4 % (16.0-70.0); PLATELET COUNT 217 TH/MM3 (150-450); RED BLOOD COUNT 4.61 MIL/MM3 (4.00-5.30); RED CELL DISTRIBUTION WIDTH 13.1 % (11.6-17.2)
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
[2016-11-19 15:57] LABS: ALKALINE PHOSPHATASE 75 U/L (45-117); TOTAL BILIRUBIN ADULT 0.6 MG/DL (0.2-1.0)
[2016-11-19 16:00] VITALS: BP 128/68; PULSE 95; RESP 20; TEMP 97.5; O2SAT 98
[2016-11-19] MEDS ORDERED: hydrOXYzine HCL 50 MG TAB PO PRN (16:00)
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
[2016-11-19 16:58] LABS: ALT (GPT) 18 U/L (10-53); AMYLASE 42 U/L (25-115); ANION GAP 12 MEQ/L (5-15); AST (GOT) 20 U/L (15-37); BICARBONATE 17.1 MEQ/L (21.0-32.0); BLOOD UREA NITROGEN 9 MG/DL (7-18); CHLORIDE 109 MEQ/L (98-107); GLOMERULAR FILTRATION RATE 90 ML/MIN (>89); SODIUM (NA) 138 MEQ/L (136-145)
[2016-11-19 17:03] LABS: POTASSIUM 4.1 MEQ/L (3.5-5.1)
[2016-11-19] MEDS ORDERED: METOCLOPRAMIDE HCL 10 MG/2 ML VIAL IV PRN (19:45)
[2016-11-19 20:00] VITALS: BP 125/63; PULSE 81; RESP 18; TEMP 98.1; O2SAT 99
[2016-11-19] MEDS: clonazePAM 0.5 MG TAB PO PRN (20:02)
[2016-11-19] MEDS: busPIRone HCL 5 MG TAB PO SCH (20:03)
[2016-11-19 20:21] LABS: BLOOD, URINE NEG (NEG); GLUCOSE,URINE NEG (NEG); KETONE, URINE 150 mg/dL (NEG); MUCUS URINE FEW /lpf (OCC); NITRITE,URINE NEG (NEG); PH, URINE 7.5 (5.0-8.5); SQUAMOUS EPITHELIAL CELL URINE 5 /hpf (0-5); URINE COLOR YELLOW (YELLW/STRAW)
[2016-11-19 20:26] LABS: BACTERIA, URINE MOD /hpf
[2016-11-19 20:29] LABS: COMMENT (UR) CULTURE INDICATED; CULTURE IF INDICATED CULTURE INDICATED
[2016-11-19] MEDS ORDERED: busPIRone HCL 5 MG TAB PO SCH (21:00)
[2016-11-19] MEDS ORDERED: hydrOXYzine HCL 50 MG/ML VIAL IM PRN (21:00)
[2016-11-19 23:00] VITALS: BP 110/54; PULSE 93; RESP 18; TEMP 98.4; O2SAT 97
[2016-11-19] MEDS ORDERED: D5-1/2 NS + KCL 20 MEQ INJ 1,000 ML IV SCH (23:00)
[2016-11-20] MEDS: ONDANSETRON HCL 4 MG/2 ML VIAL IV PUSH SCH ×4 (03:27→21:45)
[2016-11-20 04:00] VITALS: BP 101/53; PULSE 98; RESP 18; TEMP 97.5; O2SAT 98
[2016-11-20] MEDS: clonazePAM 0.5 MG TAB PO PRN ×3 (05:00→21:45)
[2016-11-20 08:00] VITALS: BP 106/58; PULSE 95; RESP 20; TEMP 98.2; O2SAT 98
[2016-11-20] MEDS: CITALOPRAM HYDROBROMIDE 20 MG TAB PO SCH (08:59)
[2016-11-20] MEDS: busPIRone HCL 5 MG TAB PO SCH ×2 (08:59→21:45)
[2016-11-20 11:40] LABS: BETA HCG QUANT 142926 MIU/ML (0-5)
--- NOTE | 2016-11-20 11:58 | EKG ---
Date Performed: 11/19/2016 Time Performed: 18:07:01 PTAGE: 21 years EKG: Sinus rhythm WITH MARKED SINUS ARRHYTHMIA NONSPECIFIC T-WAVE ABNORMALITY Compared to previous tracing, nonspecifi c T wave abnormality is more prominant. BORDERLINE ECG PREVIOUS TRACING : 11/13/2016 16.00 DOCTOR: Mahin Barros Interpretating Date/Time 11/20/2016 11:55:27
--- NOTE | 2016-11-20 12:37 | RADRPT ---
EXAM DATE/TIME: 11/20/2016 11:49 [place] COMPARISON: No previous studies available for comparison. INDICATIONS : Hyperemesis, evaluate for molar . LAB(S): [facility] MEDICAL HISTORY : . Hyperemesis. SURGICAL HISTORY : Tonsillectomy. Ovarian cystectomy. ENCOUNTER: Initial ACUITY: 1 day PAIN SCORE: 0/10 LOCATION: Bilateral pelvis MEASUREMENTS: UTERUS: 9.3 x 6.7 x 4.5 cm ENDOMETRIAL STRIPE: 14 mm RIGHT OVARY: 3.6 x 1.5 x 2.1 cm LEFT OVARY: 4.9 x 3.0 x 2.5 cm FREE FLUID: No CROWN RUMP LENGTH: 0.28 cm = 5 WKS 6 DAYS FHR: 115 BPM FINDINGS: UTERUS: There is a gestational sac within the endometrial cavity. There is a pole that measures 5.6 wee ks of age. There is a heart beat at 115 beats per minute. RIGHT OVARY: Ovary contains no mass or significant cystic lesion. LEFT OVARY: Complex cyst measuring 2.3 x 2.0 cm. MISCELLANEOUS: No free fluid. CONCLUSION: 1. Viable IUP at 5.6 weeks of age. 2. Complex left ovarian cyst measuring 2.3 cm. Micheal Sargent MD on November 20, 2016 at 12:33 Board Certified Radiologist. This report was verified electronically.
[2016-11-20 12:44] VITALS: BP 121/61; PULSE 99; RESP 20; TEMP 98.7; O2SAT 97
[2016-11-20 16:57] VITALS: BP 103/56; PULSE 100; RESP 20; TEMP 98.3; O2SAT 98
[2016-11-20 19:05] VITALS: BP 103/57; PULSE 107; RESP 18; TEMP 98.6; O2SAT 97
[2016-11-21] VITALS: BP 133/68; PULSE 90; RESP 18; TEMP 98.3; O2SAT 99
[2016-11-21] MEDS: ONDANSETRON HCL 4 MG/2 ML VIAL IV PUSH SCH ×2 (03:00→08:54)
[2016-11-21 04:00] VITALS: BP 112/54; PULSE 82; RESP 16; TEMP 97.3; O2SAT 98
[2016-11-21 08:00] VITALS: BP 107/58; PULSE 76; RESP 20; TEMP 97.6; O2SAT 98
[2016-11-21] MEDS: clonazePAM 0.5 MG TAB PO PRN (08:54)
[2016-11-21] MEDS: busPIRone HCL 5 MG TAB PO SCH (08:54)
[2016-11-21] MEDS: CITALOPRAM HYDROBROMIDE 20 MG TAB PO SCH (08:54)
[2016-11-21] MEDS ORDERED: BUSP5TAB PO (09:42)
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
--- NOTE | 2016-11-21 18:13 | MD ---
cc: ADOLPH RAMIREZ ADMISSION DATE: 11/19/2016 DISCHARGE DATE: 11/21/2016 ADMISSION DIAGNOSIS: 1. at six weeks with hyperemesis gravidarum. 2. Anxiety and depression disorder. DISCHARGE DIAGNOSIS: Improved. HISTORY OF PRESENT ILLNESS: The patient is a 21-year-old single white female para 0 admitted on 11/19/2016 for severe nausea and vomiting refractory to medical therapy as well as a severe acute exacerbation of her anxiety and depression disorder. She had been started by her primary doctor, Dr. Galeas, on Citalopram 20 mg daily and BuSpar 7.9 mg daily about four days prior to admission and was seen by me two days prior to admission and begun on Zofran. She had called on Tuesday reporting no intake of fluid or solids that would stay down and was advised to come to the office and was seen and evaluated for admission. HOSPITAL COURSE: She was admitted and received IV fluids, IV Zofran and was seen in consultation with psychiatry who recommended increasing the BuSpar to 10 milligrams p.o. twice a day. She rapidly improved and was able to tolerate fluids and food over the last 36 hours prior to discharge. Ultrasound done on 11/20/2016 showed a VIP of 5.6 weeks gestation. She is discharged home and was given a prescription for the new BuSpar 10 milligrams p.o. twice a day and will return to see me in ten days for ultrasound. She has an appointment with a new psychiatrist for outpatient care tomorrow. She will contact me for any recurrence of symptoms. MD RACHEL Quinonez/ANGUS /9:52 AM /6:10 PM
== END 2016-11-21 10:40 | disposition home or self-care (01) ==
LOC: HOCB 13:47
PROVIDERS: ADMIT Obstetrics & Gynecology; ATTEND Obstetrics & Gynecology
DX: O21.0 Mild hyperemesis gravidarum (principal); O99.341 Other mental disorders complicating pregnancy, first trimester; F32.9 Major depressive disorder, single episode, unspecified; F41.0 Panic disorder [episodic paroxysmal anxiety]; Z3A.01 Less than 8 weeks gestation of pregnancy
CPT/HCPCS: 76801; 76817; 80053; 81001; 82150; 84702; 85025; 87086; 93005; G0378; J2405; J2765; J3410; J3480